=== PATIENT | female | born 2000 | race Caucasian/White ===

== ENCOUNTER 2020-09-21 16:58 | Emergency (ER) | payer MEDICAID, SELFPAY ==
[~2020-09-21] VITALS: Ht 175.3 cm; Wt 61.2 kg
[2020-09-21 17:00] VITALS: BP_SYST 103
[2020-09-21] MEDS ORDERED: MORPHINE 4 MG INJ. 4 MG/ML VIAL ONE (17:15)
[2020-09-21] MEDS ORDERED: MORPHINE 4 MG INJ. 4 MG/ML VIAL IVP ONE (17:15)
[2020-09-21] MEDS ORDERED: HYDROmorphone 1 INJ. 1 MG/ML CARTRIDGE ONE (17:39)
[2020-09-21] MEDS ORDERED: HYDROmorphone 1 INJ. 1 MG/ML CARTRIDGE IVP ONE (18:00)
[2020-09-21 20:05] VITALS: BP_SYST 122
== END 2020-09-21 20:04 | disposition short-term general hospital (02) ==
LOC: SED 16:58
DX: S42.422A Displaced comminuted supracondylar fracture without intercondylar fracture of left humerus, initial encounter for closed fracture (principal); S42.352A Displaced comminuted fracture of shaft of humerus, left arm, initial encounter for closed fracture; Z20.822 Contact with and (suspected) exposure to COVID-19; V00.131A Fall from skateboard, initial encounter; Y93.51 Activity, roller skating (inline) and skateboarding; Y92.89 Other specified places as the place of occurrence of the external cause; Y99.8 Other external cause status
CPT/HCPCS: 36415; 73030; 73070; 87426; 96374; 96375; 99284; J1170; J2270

== ENCOUNTER 2020-10-15 02:59 | Emergency (ER) | payer MEDICAID, SELFPAY ==
[~2020-10-15] VITALS: Ht 175.3 cm; Wt 61.2 kg
[2020-10-15 03:17] VITALS: BP_SYST 120
--- NOTE | 2020-10-15 03:17 | NUR ---
Patient to ER bed 8 to gown for evaluation. Side rails up.
--- NOTE | 2020-10-15 03:20 | NUR ---
Patient BIB by family/friend from home. C/O Dog bite x today . Patient reported, her friend 's dog bite her while played with the dog. A/O,X4, small laceration wound right upper eye lid, bleeding control, pain rate 7/10.
--- NOTE | 2020-10-15 03:21 | NUR ---
ER Dr. Gomez at bedside examining patient.
--- NOTE | 2020-10-15 03:28 | NUR ---
Dr. Gomez at bedside for eye exam.
[2020-10-15] MEDS ORDERED: AMOXICILLIN/CLAVULANATE POTASSIUM 875 MG TABLET ONE (03:51)
[2020-10-15] MEDS ORDERED: IBUPROFEN 600 MG TABLET ONE (03:52)
[2020-10-15] MEDS ORDERED: AMOXICILLIN/CLAVULANATE POTASSIUM 875 MG TABLET PO ONE (04:00)
[2020-10-15] MEDS ORDERED: IBUPROFEN 600 MG TABLET PO ONE (04:00)
--- NOTE | 2020-10-15 04:06 | NUR ---
Patient has a 0.5 cm laceration to right upper eye lid. Dr. Gomez applied dermabond using sterile technique. Edges well approximated. Site cleansed with NSS. Dressing of Adhesive guaze applied to site. No bleeding noted. Pt tolerated well.
[2020-10-15] MEDS ORDERED: AMOX-426 PO (04:17)
[2020-10-15] MEDS ORDERED: IBUP-1969 PO (04:17)
[2020-10-15 04:24] VITALS: BP_SYST 128
--- NOTE | 2020-10-15 04:24 | NUR ---
Patient given written and verbal discharge instructions and verbalizes understanding. ER MD discussed with patient the results and treatment provided. Patient in stable condition. ID arm band removed. Rx of Augmentin and Ibuprofen given. Patient educated on pain management and to follow up with PMD. Pain Scale 2/10. Opportunity for questions provided and answered. Medication side effect fact sheet provided.
--- NOTE | 2020-10-15 04:38 | NUR ---
Animal bite reporting form faxed to [facility].
== END 2020-10-15 04:38 | disposition home or self-care (01) ==
LOC: SED 02:59
DX: S01.111A Laceration without foreign body of right eyelid and periocular area, initial encounter (principal); X58.XXXA Exposure to other specified factors, initial encounter; Y93.89 Activity, other specified; Y92.89 Other specified places as the place of occurrence of the external cause; Y99.8 Other external cause status
CPT/HCPCS: 99284; J7030